=== PATIENT | male | born 1955 | race Caucasian/White ===

== ENCOUNTER 2020-04-07 12:54 | Outpatient (CLI) | payer MEDICARE, OTHER, SELFPAY | END 2020-04-07 12:55 | disposition home or self-care (01) | LOC: ANHAUDASC 12:57 | PROVIDERS: PCP Internal Medicine; Visit Provider Otolaryngology | DX: H65.22 Chronic serous otitis media, left ear (principal) | CPT/HCPCS: 92557; 92567 ==